=== PATIENT | female | born 1955 | race Caucasian/White ===

== ENCOUNTER 2017-01-11 07:54 | Day surgery (SDC) | payer OTHER ==
[~2017-01-11 07:54] MED LIST: Lactated Ringers 1,000 ML IV SCH; Sodium Chloride 0.9% 10 ML Syringe FLUSH PRN
[2017-01-11] MEDS ORDERED: Propofol 200 MG/20 ML SDV IV ONE (08:50)
--- NOTE | 2017-01-11 09:27 | PCM.OPNOTE ---
- General Post-Op/Procedure Note Date of Surgery/Procedure: 01/11/17 Operative Procedure(s): c scope Findings: internal hemorrhoids Pre Op Diagnosis: heme + stools. hx of colon polyps Post-Op Diagnosis: internal hemorrhoids Anesthesia Technique: MAC Primary Surgeon: Zack Roman Anesthesia Provider: Roderick Avery Pathology: none Complications: None Condition: Good Free Text/Narrative:: see dictation
[2017-01-11 10:02] VITALS: BP 105/68
--- NOTE | 2017-01-11 12:36 | OR ---
DATE OF OPERATION: 01/11/2017 SURGEON: Zack Roman MD PROCEDURE PERFORMED: Colonoscopy. PREOPERATIVE DIAGNOSES: Occult blood in stools and history of colon polyps with dysplasia. POSTOPERATIVE DIAGNOSIS: Internal hemorrhoids. INDICATIONS FOR PROCEDURE: This is a 61-year-old white female, recently referred with a diagnosis of occult blood in stool. She has a personal history of colon polyps and now presents for followup scope. The scope was then 2-1/2 years ago. She was offered and accepted colonoscopy. DESCRIPTION OF PROCEDURE: After an excellent IV sedation was administered, digital rectal exam was performed. No marked abnormality was noted. The flexible colonoscope was inserted and advanced to the cecum without difficulty. The following findings were noted: Ascending colon, unremarkable. Transverse colon, unremarkable. Descending colon, unremarkable. Sigmoid and rectum unremarkable. On retroflexing the scope, there was some evidence of some internal hemorrhoids. This is the presumed cause of her bleeding. Colon was deflated, scope was removed. The patient tolerated the procedure well, and was taken to recovery room in good condition. /[id number] /[id number]
== END 2017-01-11 10:10 | disposition home or self-care (01) ==
LOC: FB.SDS 07:54
PROVIDERS: ATTEND Surgery
DX: Z12.11 Encounter for screening for malignant neoplasm of colon (principal); Z86.010 Personal history of colon polyps; K64.8 Other hemorrhoids; E03.9 Hypothyroidism, unspecified; I10 Essential (primary) hypertension; F41.9 Anxiety disorder, unspecified; F32.9 Major depressive disorder, single episode, unspecified; E66.9 Obesity, unspecified; Z88.8 Allergy status to other drugs, medicaments and biological substances; Z98.890 Other specified postprocedural states; Z79.899 Other long term (current) drug therapy
CPT/HCPCS: 45378; J2704; J7120